=== PATIENT | female | born 1935 | race Caucasian/White ===

== ENCOUNTER → 2017-05-19 | Outpatient (CLI) | payer MEDICARE, OTHER ==
[~2017-05-19] MED LIST: CALC1TAB87 PO; EVOX30CA2 PO; FLUO.05%ST TOPICAL; GABA300C5 PO; IPRA0.06 EACH NARE; KETO2CRE TOPICAL; KRIL1000 PO; LEVO100T5 PO; NAPH1DRO EACH EYE; NEXI40CA PO; PROP20TA3 PO; SYST0.4D2 RIGHT EYE; SYSTSOL8 EACH EYE; ZOLP10TA3 PO; [UNRECOGNIZED DRUG - CODE] PO
[2017-05-19 08:36] LABS: AUTOMATED NEUTROPHIL # 3.6 TH/MM3 (1.8-7.7); BASOPHIL # 0.1 TH/MM3 (0-0.2); EOSINOPHIL # 0.3 TH/MM3 (0-0.4); EOSINOPHIL % 5.7 % (0.0-4.0); HEMATOCRIT 35.2 % (35.0-46.0); HEMO FLAGS DIFF FINAL; LYMPH % 16.1 % (9.0-44.0); LYMPHOCYTE # 0.9 TH/MM3 (1.0-4.8); MEAN CELL VOLUME 89.6 FL (80.0-100.0); MEAN CORPUSCULAR HEMOGLOBIN 30.5 PG (27.0-34.0); MONO % 11.2 % (0.0-8.0); PLATELET COUNT 194 TH/MM3 (150-450); RED BLOOD COUNT 3.93 MIL/MM3 (4.00-5.30); RED CELL DISTRIBUTION WIDTH 14.6 % (11.6-17.2); WHITE BLOOD COUNT 5.5 TH/MM3 (4.0-11.0)
[2017-05-19 08:41] LABS: APTT (PATIENT) 26.7 SEC (24.3-30.1); PROTHROMBIN TIME - PATIENT 10.5 SEC (9.8-11.6)
[2017-05-19 08:46] LABS: BLOOD, URINE NEG (NEG); COMMENT (UR) CATH-CULT NOT IND; CULTURE IF INDICATED CATH CULTURE NOT IND; GLUCOSE,URINE NEG (NEG); KETONE, URINE NEG (NEG); MUCUS URINE FEW /lpf (OCC); NITRITE,URINE NEG (NEG); URINE COLOR LIGHT-YELLOW (YELLW/STRAW)
[2017-05-19 09:03] LABS: BICARBONATE 25.4 MEQ/L (21.0-32.0); POTASSIUM 4.4 MEQ/L (3.5-5.1)
--- NOTE | 2017-05-20 09:31 | EKG ---
Date Performed: 05/19/2017 Time Performed: 08:27:08 PTAGE: 82 years EKG: Sinus bradycardia with borderline 1st degree A-V block. Borderline ECG PREVIOUS TRACING : 06/21/2005 13.37 DOCTOR: Angeline Ken Interpretating Date/Time 05/20/2017 09:30:58
== END ==
LOC: CPRE 07:54
PROVIDERS: ATTEND Orthopaedic Surgery
DX: Z01.812 Encounter for preprocedural laboratory examination (principal); Z01.810 Encounter for preprocedural cardiovascular examination; M17.11 Unilateral primary osteoarthritis, right knee; M79.609 Pain in unspecified limb; R94.31 Abnormal electrocardiogram [ECG] [EKG]
CPT/HCPCS: 36415; 80048; 81001; 85025; 85610; 85730; 93005

== ENCOUNTER 2017-06-12 05:15 | Inpatient (IN) | payer MEDICARE, OTHER ==
[~2017-06-12] VITALS: Ht 152.4 cm; Wt 50.2 kg
[2017-06-12] MEDS ORDERED: POVIDONE IODINE 5% (ANTISEPSIS KIT) 4 APPLICATIONS EACH NARE PRN (05:45)
[2017-06-12] MEDS ORDERED: ceFAZolin 2 GM PREMIX 50 ML IV SCH (05:45)
[2017-06-12] MEDS ORDERED: METOPROLOL TARTRATE 25 MG TAB PO PRN (05:45)
[2017-06-12] MEDS ORDERED: EXPAREL PERI-ARTICULAR INJECTION (TOTAL VOL. 100 ML) P-ARTICULR SCH ×2 (05:45)
[2017-06-12] MEDS ORDERED: CHLORHEXIDINE GLUCONATE 2 % 1 PACK (2 CLOTHS) TOPICAL PRN (05:45)
[2017-06-12] MEDS ORDERED: LACTATED RINGER'S 1000 ML IV PRN (05:45)
[2017-06-12] MEDS ORDERED: CHLORHEXIDINE GLUCONATE 4% SOLN 120 ML BTL TOPICAL SCH (05:45)
[2017-06-12] MEDS ORDERED: SODIUM CHLORID 0.9% 500 ML IV PRN (05:45)
[2017-06-12] MEDS ORDERED: TRANEXAMIC ACID INJ 500 MG in SODIUM CHLORIDE 0.9% INJ 100 ML IV SCH ×4 (05:45)
[2017-06-12] MEDS ORDERED: GENTAMICIN SULFATE 80 MG/2 ML VIAL ONE (05:54)
[2017-06-12] MEDS ORDERED: CLOB5AER (05:56)
[2017-06-12] MEDS ORDERED: ACETAMINOPHEN 1000 MG/100 ML 100 ML IV ONE (06:29)
[2017-06-12] MEDS ORDERED: MIDAZOLAM HCL 2 MG/2 ML VIAL ONE (06:30)
[2017-06-12] MEDS ORDERED: BUPIVACAINE LIPOSOME PF 1.3% 20 ML VIAL ONE (06:32)
[2017-06-12] MEDS ORDERED: FAMOTIDINE 20 MG/2 ML VIAL ONE (06:33)
[2017-06-12] MEDS ORDERED: ZOLPIDEM TARTRATE 5 MG TAB PO PRN (06:45)
[2017-06-12] MEDS ORDERED: ACETAMINOPHEN/HYDROcodone 325 MG/7.5 MG TAB PO PRN (06:45)
[2017-06-12] MEDS ORDERED: ONDANSETRON HCL 4 MG/2 ML VIAL IVP PRN (06:45)
[2017-06-12] MEDS ORDERED: TRANEXAMIC ACID INJ 0 MG in SODIUM CHLORIDE 0.9% INJ 100 ML IV SCH (06:45)
[2017-06-12] MEDS ORDERED: MAGNESIUM HYDROXIDE SUSP 30 ML CUP PO PRN (06:45)
[2017-06-12] MEDS ORDERED: ECASA81 PO (06:49)
--- NOTE | 2017-06-12 06:55 | HHI.FF ---
Face to Face Verification Diagnosis: (1) Status post total right knee replacement Physical Therapy Gait training Knee: Total knee, Protocol: Right, Gait training, Full weight bearing Right LE Weight Bearing: WB as tolerated Right LE Range of Motion: Active ROM (AROM, AAROM, PROM. ROM goal is 0 to 135 degrees.) Nursing Nursing: Dressing changes (to begin on postop day 7.) Dressing Changes: Daily dressing change, Coverderm/Primapore Additional Instructions Remove steristrips on postop day 14. I have seen patient Lisa Ronquillo on 06/12/17. My clinical findings support the need for the requested home health care services because: Ltd mobility - disease progression Limited ability to care for self High risk of falls I certify that my clinical findings support that this patient is homebound because: Post-op weakness Unsteady gait/balance Unsafe to leave home unassisted Vinnie Osorio MD ([place]) Jun 12, 2017 06:55
[2017-06-12] MEDS ORDERED: LACTASE PO PRN (07:00)
[2017-06-12] MEDS ORDERED: KETOCONAZOLE 2% CREAM 15 GM TOPICAL PRN (07:00)
[2017-06-12] MEDS ORDERED: POLYETHYLENE GLYCOL PROPYLENE OPTH RIGHT EYE PRN (07:00)
[2017-06-12] MEDS ORDERED: Post-op Orders (for Pharmacy) XX ONE (08:45)
[2017-06-12] MEDS ORDERED: [UNRECOGNIZED DRUG - OTHER] PO (09:00)
[2017-06-12] MEDS ORDERED: NAPHAZOLINE EACH EYE SCH (09:00)
[2017-06-12] MEDS ORDERED: MORPHINE SULFATE 2 MG/ML INJ IV PUSH PRN (09:00)
[2017-06-12] MEDS: LEVOTHYROXINE SODIUM 100 MCG TAB PO SCH (09:00)
[2017-06-12] MEDS: CALCIUM/VITAMIN D 250 MG/125 U TAB PO SCH (09:00)
[2017-06-12] MEDS ORDERED: GLYCERIN EACH EYE SCH (09:00)
[2017-06-12] MEDS ORDERED: FLUOCINONIDE TOPICAL SCH (09:00)
[2017-06-12] MEDS ORDERED: [UNRECOGNIZED DRUG - OTHER] EACH EYE SCH (09:00)
[2017-06-12] MEDS ORDERED: NON-FORMULARY DRUG (Krill Oil 1,000 MG) PO SCH (09:00)
[2017-06-12] MEDS ORDERED: IPRATROPIUM 0.06% NASAL SCH (09:00)
[2017-06-12] MEDS ORDERED: CEVIMELINE PO (09:00)
--- NOTE | 2017-06-12 09:10 | PD.OP ---
Operative Report Date of Surgery: Jun 12, 2017 Preoperative Diagnosis: (1) Primary osteoarthritis of right knee Postoperative Diagnosis: (1) Primary osteoarthritis of right knee Procedure: Right total knee arthroplasty with Laura Triathlon prosthesis (uncemented) Anesthesia: Spinal with adductor canal block regional and local Surgeon: Ajith Osorio M.D. Dinkey Dispatcher(s): Linda Koch Operation and Findings: Indications and Findings: This 82-year-old woman has had right knee pain for several years which is progressively worsening and progressively giving her more deformity. She has ambulation tolerance of 1 block. His difficulty with stairs and standing from a seated position. Treatment has included anti- inflammatory agents and analgesics, steroid injections, exercise, ambulatory aids. She has progressively worsened in spite of this. Physical findings show significant genu valgum with laxity in the lateral compartment, osteophytes, lateral tenderness crepitation on motion. X-rays show significant arthritis with loss of cartilage [id number], medial meniscal calcification, osteophytes and some lateral subchondral sclerosis. Operative findings were consistent with the radiographic findings with her being loss of articular cartilage to expose subchondral bone in the lateral compartment and also changes in the medial compartment and to a greater extent the patellofemoral compartment. Osteophytes and subchondral sclerosis. The prosthesis used was a Laura Triathlon prosthesis. The femur was a size 4, cruciate retaining, uncemented. The tibial baseplate was a size 3 Tritanium with a 9 mm cruciate retaining, X3 polyethylene spacer. The patella was a size 2 mm asymmetric Tritanium backed. The patient was brought to the clean-air operating suite. A spinal anesthetic was administered as well as a regional anesthetic by abductor canal block. The position was supine with a small bolster under the hip on the operative side. A pneumatic tourniquet was applied to the upper thigh. The lower extremity was then prepped with alcohol, Hibiclens and ChloraPrep and draped in the usual manner with the knee draped free. An appropriate timeout procedure was carried out. An incision was made from about 3 fingerbreadths above the superior medial pole of patella down the tibial tubercle on the medial side. The incision was deepened through the subcutaneous tissue to the retinacular structures which were exposed medially and laterally. A medial retinacular incision was then made from the superior middle pole of patella down the tibial tubercle and up into the quadriceps tendon splitting it longitudinally and the medial one third. The patella was reflected. The infrapatellar fat pad was debulked. The anterior cruciate ligament was excised. Medial and lateral meniscectomies were initiated. A fenestrations were made in the distal femur for intramedullary referencing guides. The distal femoral cutting guide and jig were then assembled for a 5, 8 mm cut. When this was fit position and placed cutting block was stabilized with pins. The jig was removed. The distal femoral cut was then completed with the oscillating saw. The sizing guide was then positioned in place along Whitesides line and the epicondylar axis and stabilized with pins. The femoral size was then determined as noted above. The 4-in-1 cutting block was then positioned in place. Anterior and posterior cuts were made followed by posterior and anterior chamfer cuts taking care to prevent injury to ligamentous structures. Osteophytes were then trimmed from the distal femur. A bone plug was then placed into the fenestration of the distal femur. The proximal tibia was then exposed. The medial and lateral meniscectomies were completed. The proximal tibial cutting guide was then positioned in place and stabilized for rotation. The depth of cut was then verified with a stylus off the lateral side. The cutting block was stabilized with pins. The jig was removed. The depth of cut was then verified and adjusted appropriately with the use of the spacer block. The proximal tibial cut was then made with the oscillating saw taking care to prevent injury to neurovascular and ligamentous structures. Proximal tibial bone was removed. Local anesthetic was administered with Exparel in the posterior capsule. The tibial baseplate trial was then positioned in place. After verifying the appropriate size, the base plate trial was positioned in place along with its spacer. The femoral component was then impacted into place. The alignment was checked. The tibial baseplate was then pinned in place on the tibia. Attention was directed to the patella. The patella drill guide was positioned in place for the appropriate sized patella. Patellar drilling was then carried out. The trial patella was positioned in place. The knee was taken through a range of motion which was easily 0 extension to 140. The patella trial was removed. The femoral drill holes were made. The femoral trials were removed. The tibial spacer was removed. The tibial punch was impacted through the proximal tibial punch guide. This was all removed followed by placement of the tibial drill guide. The tibial drill holes were then made. The guide was removed. The cut ends of bone were then cleaned with pulse lavage. The tibial baseplate was then impacted into place and seated appropriately. The spacer was inserted. The the femoral component was then impacted into place and seated appropriately. The patella component was then seated with the patellar device and tightened appropriately. The knee was taken through a range of motion which was comparable to the previous range of motion with excellent stability in flexion and extension and appropriate patellofemoral tracking. The remainder of the Exparel was then injected throughout the knee as a local anesthetic. Drains were brought out the superior lateral aspect of the suprapatellar pouch. Wound closure then commenced using 0 Vicryl interrupted [id number] sutures for the capsular and fascial structures, 2-0 Vicryl interrupted simple sutures with buried knots for the subcutaneous tissues and 4-0 Monocryl, tenuous subcuticular closure for the skin. The wound was then dressed with Steri-Strips followed by Optifoam silver impregnated dressing. Sterile soft roll with a cooling pad and Ori bandage from the base of the toes to mid thigh were then applied. Patient was then transferred from the operating room to the recovery room in satisfactory condition having tolerated procedure well. Counts are correct. Specimens: None. Estimated blood loss: 150 mL Vinnie Osorio MD ([place]) Jun 12, 2017 09:10
--- NOTE | 2017-06-12 09:12 | HHI.PR ---
Immediate Post Op Note Procedure Date: Jun 12, 2017 Pre Op Diagnosis: (1) Primary osteoarthritis of right knee Post Op Diagnosis: (1) Primary osteoarthritis of right knee Surgeon: Ajith Osorio M.D. Parachute Repairer(s): Linda Koch Procedure: Right total knee arthroplasty was Striker Triathlon prosthesis (uncemented) Findings: There was severe osteoarthritis in the right knee with loss of articular cartilage to bone on bone laterally. Complications: None Specimen(s) removed: None Estimated blood loss: 150 mL Anesthesia: Regional Block (adductor canal), Spinal, Local (bupivacaine liposomal) Drains: Hemovac (2) IVF Tourniquet time (min at mmHg) 0 Patient to: PACU Patient Condition: Good Implant/Devices: SEE IMPLANT LOG (if applicable) Date/Time of Procedure: SEE SURGICAL CARE RECORD Vinnie Osorio MD (Charles) Jun 12, 2017 09:12
[2017-06-12] MEDS ORDERED: HYDR-3580 PO (09:29)
[2017-06-12] MEDS: LACTATED RINGER'S 1000 ML INJ 1,000 ML IV SCH ×2 (09:42→21:30)
[2017-06-12] MEDS ORDERED: DO NOT ADM ANY ANTICOAGULANT DRUGS PRN (10:00)
--- NOTE | 2017-06-12 10:03 | RADRPT ---
EXAM DATE/TIME: 06/12/2017 09:44 [facility] COMPARISON: No previous studies available for comparison. INDICATIONS : Post op right total knee. MEDICAL HISTORY : None. SURGICAL HISTORY : None. ENCOUNTER: Initial ACUITY: 1 day PAIN SCORE: 0/10 LOCATION: Right Knee FINDINGS: Postsurgical features of right knee arthroplasty. Arthroplasty components are in anatomic alignment. No significant acute bony fracture. Immediate postsurgical soft tissue features. CONCLUSION: 1. Status post right knee arthroplasty in anatomic alignment without significant acute bony fracture. Fabian Chauhan MD on June 12, 2017 at 9:59 Board Certified Radiologist. This report was verified electronically.
[2017-06-12] MEDS ORDERED: ePHEDrine/NS 25 MG/5 ML SYRINGE IV ONE (12:00)
[2017-06-12] MEDS ORDERED: PROPOFOL 200 MG/20 ML AMP IV ONE (12:00)
[2017-06-12] MEDS ORDERED: DEXAMETHASONE SOD PHOS 4 MG/ML VIAL IV ONE (12:00)
[2017-06-12] MEDS ORDERED: ONDANSETRON HCL 4 MG/2 ML VIAL IV ONE (12:00)
[2017-06-12] MEDS ORDERED: LACTATED RINGER'S 1000 ML INJ 1,000 ML IV ONE (12:00)
[2017-06-12] MEDS ORDERED: SODIUM CHLORIDE 0.9% 20 ML VIAL IV ONE (12:00)
[2017-06-12] MEDS ORDERED: KETOROLAC TROMETHAMINE 30 MG/ML (IVP) VIAL IV PUSH ONE (12:00)
[2017-06-12] MEDS ORDERED: LIDOCAINE HCL 1% PF 5 ML SYRINGE OTHER ONE (12:00)
[2017-06-12] MEDS: ACETAMINOPHEN/HYDROcodone 325 MG/7.5 MG TAB PO PRN ×3 (12:48→23:38)
--- NOTE | 2017-06-12 15:18 | PD.CONS ---
[facility] By [facility] Osorio Reason for Consult Medical management Primary Care Physician Non-Staff Diagnoses: (1) Primary osteoarthritis of right knee (2) Hypothyroidism History of Present Illness 82-year-old female with a medical history significant for osteoarthritis, hypothyroidism, rheumatoid arthritis, GERD, atrial fibrillation and esophageal stricture admitted for right knee arthroplasty. Patient has had persistent issues with osteoarthritis involving the knee. She failed conservative management and was admitted for right knee arthroplasty. Patient is seen postoperatively. She reports her pain is under control. We reviewed her medical history. Regarding atrial fibrillation, she reports she has been stable on propranolol. She is not on any blood thinners and does not follow with a fur floor worker. 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 Appendectomy Maksim fundoplication Cataract surgery Status post right knee arthroplasty Reported Medications Reported Meds & Active Scripts Active Hydrocodone-Acetamin 7.5-325 (Hydrocodone/Acetaminophen) 7.5 Mg-325 Mg Tablet 1 Tab PO Q4H PRN Reported Clobetasol Propionate 0.05 % Foam Fluocinonide Topical (Fluocinonide) 0.05% Soln 1 Applic TOPICAL DAILY Ketoconazole Topical 2% Cream 1 Applic TOPICAL DAILY PRN Zolpidem (Zolpidem Tartrate) 10 Mg Tab 10 Mg PO HS PRN Evoxac (Cevimeline HCl) 30 Mg Cap 30 Mg PO TID PRN Ipratropium Nasal 0.06% Homer 1 Homer EACH NARE QID Nexium (Esomeprazole DR) 40 Mg Capdr 40 Mg PO DAILY Systane Gel Opth (Polyethylene Glycol-Propylene Opth) 0.4-0.3% Drops 1 Drop RIGHT EYE HS PRN Clear Eyes Cooling Comfort Opth Drops (Naphazoline-Glycerin Opth Drops) 0.5- 0.03 % Soln 1 Drop EACH EYE DAILY Systane Ultra Home & Away Opth (Polyethylene Glycol-Propylene Opth) 0.4-0.3% Soln 1 Drop EACH EYE BID Lactaid (Lactase) 3,000 Unit Tablet 1 Tab PO DAILY PRN Calcium 600 with Vitamin D (Calcium Carbonate-Cholecalciferol) 600-400 mg-Unit Tab 1 Tab PO DAILY Propranolol (Propranolol HCl) 20 Mg Tab 20 Mg PO DAILY Levothyroxine (Levothyroxine Sodium) 100 Mcg Tab 100 Mcg PO DAILY Krill Oil 1,000 Mg Cap 1,000 Mg PO DAILY Family History Reviewed and is noncontributory. Social History Patient does not use tobacco Admits to about a glass of wine daily. No history of alcohol withdrawals. Physical Exam Vital Signs Vital Signs Date Time Temp Pulse Resp B/P (MAP) Pulse Ox O2 Delivery O2 Flow Rate FiO2 06/12/17 14:00 97.5 50 16 152/65 (94) 98 Room Air 06/12/17 13:00 53 18 140/63 (88) 97 Room Air 06/12/17 12:03 97.5 06/12/17 12:00 97.5 54 15 155/68 (97) 96 Room Air 06/12/17 11:32 97.5 06/12/17 11:15 50 19 158/70 (99) 99 Room Air 06/12/17 11:00 52 19 142/62 (88) 99 Room Air 06/12/17 10:45 47 20 163/71 (101) 99 Room Air 06/12/17 10:30 49 20 168/71 (103) 100 Room Air 06/12/17 10:15 50 20 166/74 (104) 100 Room Air 06/12/17 10:06 96.6 06/12/17 10:00 47 13 165/73 (103) 98 Room Air 06/12/17 09:45 46 13 154/66 (95) 98 Room Air 06/12/17 09:30 45 13 156/69 (98) 98 Room Air 06/12/17 09:18 96.6 50 12 142/65 (90) 100 Room Air 06/12/17 05:59 97.8 54 16 199/69 (112) 100 Physical Exam GENERAL: This is a well-nourished, well-developed patient, in no apparent distress. SKIN: No rashes, ecchymoses or lesions. Cool and dry. HEAD: Atraumatic. Normocephalic. No temporal or scalp tenderness. EYES: Pupils equal round and reactive. Extraocular motions intact. No scleral icterus. No injection or drainage. ENT: Nose without bleeding, purulent drainage or septal hematoma. Throat without erythema, tonsillar hypertrophy or exudate. Uvula midline. Airway patent. NECK: Trachea midline. No JVD or lymphadenopathy. Supple, nontender, no meningeal signs. CARDIOVASCULAR: Regular rate and rhythm without murmurs, gallops, or rubs. RESPIRATORY: Clear to auscultation. Breath sounds equal bilaterally. No wheezes , rales, or rhonchi. GASTROINTESTINAL: Abdomen soft, non-tender, nondistended. No hepato-splenomegaly , or palpable masses. No guarding. MUSCULOSKELETAL: Right knee postop dressing intact. Neurovascularly intact distally at the foot. NEUROLOGICAL: Awake and alert. Cranial nerves II through XII intact. Motor and sensory grossly within normal limits. Five out of 5 muscle strength in all muscle groups. Normal speech. Imaging Last Impressions Knee X-Ray 06/12/17 0645 Signed Impressions: Service Date/Time: Monday, June 12, 2017 09:44 - CONCLUSION: 1. Status post right knee arthroplasty in anatomic alignment without significant acute bony fracture. Fabian Chauhan MD Assessment and Plan Problem List: (1) Primary osteoarthritis of right knee ICD Code: M17.11 - Unilateral primary osteoarthritis, right knee Plan: Status post right knee arthroplasty Routine postoperative care per orthopedics PT DVT prophylaxis when cleared by orthopedics Recommend we Avoid NSAIDs given the patient has only one functioning kidney (2) Paroxysmal atrial fibrillation ICD Code: I48.0 - Paroxysmal atrial fibrillation Plan: Patient has a CHADSVASC score of 3. Anticoagulation is recommended. I discussed this at length with the patient and her at bedside Would be reasonable for her to go out on DVT prophylaxis alone per orthopedics and follow-up with her primary care physician or cardiology to consider anticoagulation. (3) GERD (gastroesophageal reflux disease) ICD Code: K21.9 - Gastro-esophageal reflux disease without esophagitis Plan: Continue PPI (4) Hypothyroidism ICD Code: E03.9 - Hypothyroidism, unspecified Plan: Continue Synthroid Assessment and Plan Thank you for allowing me to participate in the care of Ms. Ronquillo. Will follow Mitra Saunders MD Jun 12, 2017 15:18
[2017-06-12 16:00] VITALS: BP 182/74; PULSE 71; RESP 18; TEMP 96.1; O2SAT 100
[2017-06-12] MEDS: KETOROLAC TROMETHAMINE 30 MG/ML (IVP) VIAL IVP SCH ×2 (16:15→21:34)
[2017-06-12 19:49] VITALS: BP 180/75; PULSE 83; RESP 18; TEMP 96.4; O2SAT 100
[2017-06-12 23:25] VITALS: BP 121/62; PULSE 60; RESP 18; TEMP 96.6; O2SAT 100
[2017-06-13] MEDS: KETOROLAC TROMETHAMINE 30 MG/ML (IVP) VIAL IVP SCH ×3 (03:20→13:32)
[2017-06-13 04:59] VITALS: BP 119/50; PULSE 64; RESP 18; TEMP 96.5; O2SAT 99
--- NOTE | 2017-06-13 06:16 | PD.ORT.PN ---
Subjective Post Op Day #: 1 Subjective Remarks She is doing well with very little pain at this time. She did get some confusion and was out of bed walking without assistance in the evening. She relates this possibly to medications. She has been taking Ambien along with the analgesic. She still still wants to go home. She has questions about activities and ADLs. Range of Motion 0 to 93 Distance Walked 175 feet with physical therapy. Objective Vitals Vital Signs Date Time Temp Pulse Resp B/P (MAP) Pulse Ox O2 Delivery O2 Flow Rate FiO2 06/13/17 04:46 21 06/13/17 04:32 17 06/13/17 00:52 17 06/12/17 23:25 96.6 60 18 121/62 (81) 100 06/12/17 19:49 96.4 83 18 180/75 (110) 100 06/12/17 16:00 96.1 71 18 182/74 (110) 100 06/12/17 14:00 97.5 50 16 152/65 (94) 98 Room Air 06/12/17 13:00 53 18 140/63 (88) 97 Room Air 06/12/17 12:03 97.5 06/12/17 12:00 97.5 54 15 155/68 (97) 96 Room Air 06/12/17 11:32 97.5 06/12/17 11:15 50 19 158/70 (99) 99 Room Air 06/12/17 11:00 52 19 142/62 (88) 99 Room Air 06/12/17 10:45 47 20 163/71 (101) 99 Room Air 06/12/17 10:30 49 20 168/71 (103) 100 Room Air 06/12/17 10:15 50 20 166/74 (104) 100 Room Air 06/12/17 10:06 96.6 06/12/17 10:00 47 13 165/73 (103) 98 Room Air 06/12/17 09:45 46 13 154/66 (95) 98 Room Air 06/12/17 09:30 45 13 156/69 (98) 98 Room Air 06/12/17 09:18 96.6 50 12 142/65 (90) 100 Room Air I/O 06/12/17 06/12/17 06/12/17 06/13/17 06/13/17 06/13/17 07:00 15:00 23:00 07:00 15:00 23:00 Intake Total 1510 ml 480 ml 360 ml Output Total 650 ml 265 ml Balance 860 ml 215 ml 360 ml Intake Oral 210 ml 480 ml 360 ml IV Total 1300 ml Output Urine Total 500 ml Drainage Total 50 ml 265 ml Estimated Blood Loss 100 ml # Voids 2 2 # Bowel Movements 0 0 Imaging Last 24 hours Impressions Knee X-Ray 06/12/17 0645 Signed Impressions: Service Date/Time: Monday, June 12, 2017 09:44 - CONCLUSION: 1. Status post right knee arthroplasty in anatomic alignment without significant acute bony fracture. Fabian Chauhan MD Objective Remarks She is resting comfortably, out of bed in the chair within the elevated. The dressing is dry and intact. The neurovascular status is intact. Assessment & Plan Ortho Post Op Day #: 1 Problem List: (1) Status post total right knee replacement ICD Codes: Z96.651 - Presence of right artificial knee joint Plan: Continue postoperative care and PT. (2) Primary osteoarthritis of right knee ICD Codes: M17.11 - Unilateral primary osteoarthritis, right knee Status: Resolved Assessment and Plan Condition: Good. Orthopedically stable. DVT prophylaxis: TEDs, aspirin, sequentials. Discharge plans: Home with home health care. An appointment was scheduled through the office. Prescriptions: [place] 7.5/325 I have discussed with her and her the use of Ambien. She should probably discontinue the Ambien at this time as long as she is taking [place]. I have suggested that she take one half of [place] rather than a full dose. We also discussed precautions related to bathing, wound care and other ADL. Vinnie Osorio MD ([place]) Jun 13, 2017 06:16
[2017-06-13 06:27] LABS: HEMATOCRIT 29.7 % (35.0-46.0); HEMOGLOBIN 9.9 GM/DL (11.6-15.3)
[2017-06-13] MEDS: LEVOTHYROXINE SODIUM 100 MCG TAB PO SCH (06:48)
--- NOTE | 2017-06-13 07:01 | HHI.DS ---
Discharge Summary Admission Date Jun 12, 2017 at 05:15 Discharge Date: Jun 13, 2017 Admitting Diagnosis Primary osteoarthritis, right knee Diagnosis: (1) Status post total right knee replacement ICD Codes: Z96.651 - Presence of right artificial knee joint (2) Primary osteoarthritis of right knee Diagnosis: Principal ICD Codes: M17.11 - Unilateral primary osteoarthritis, right knee Status: Resolved Procedures Right total knee arthroplasty with Laura Triathlon prosthesis (uncemented) on 06/12/2017 he Brief History This is a 82 year old female patient was admitted for osteoarthritis of the right knee which has been nonresponsive to conservative measures including anti- inflammatory agents and analgesics and exercise. She has had progressive deformity in the knee. She has limited ambulation tolerance. Physical findings show genu valgum on the right with lateral laxity and significant tenderness. X-ray showed loss of articular cartilage to bone on bone lateral compartment with osteophytes and eburnation. CBC/BMP: 06/13/17 0603 Significant Findings Laboratory Tests Test 06/13/17 06:03 Hemoglobin 9.9 GM/DL (11.6-15.3) Hematocrit 29.7 % (35.0-46.0) Imaging Last 72 hours Impressions Knee X-Ray 06/12/17 0645 Signed Impressions: Service Date/Time: Monday, June 12, 2017 09:44 - CONCLUSION: 1. Status post right knee arthroplasty in anatomic alignment without significant acute bony fracture. Fabian Chauhan MD PE at Discharge She is resting comfortably, out of bed in the chair within the elevated. The dressing is dry and intact. The neurovascular status is intact. Hospital Course The patient was admitted as noted above. She had the above noted operative procedure carried out as noted above. She received prophylactic antibiotics in the form of Ancef according to protocol both preoperatively and postoperatively. She received tranexamic acid to help with hemostasis according to the protocol. DVT prophylaxis was initiated with PRAKASH stockings and sequentials and will follow with aspirin. This will be continued as an outpatient She was started on physical therapy the day of surgery. She progressed well according to the physical therapy notes. She was able to walk 175 feet and had a range of motion from 0 extension to 93 of flexion. She was discharged home with home health care. I have discussed her findings and postoperative plans and care with her and her at the bedside. Pt Condition on Discharge: Good Discharge Disposition: Disch w/ Home Health Serv Discharge Instructions Diet Instructions: As Tolerated, No Restrictions Activities You Can Perform: Full Weight Bearing, Shower Only-No Bath Activities to Avoid: Lifting/Bending, Strenuous Activity, Bathing, Driving Follow up Referrals: Orthopedics with Vinnie Osorio MD (Charles) New Medications: Aspirin DR (Aspirin DR) 81 Mg Tabdr 81 MG PO BID for Prevent Blood Clot for 30 Days, #60 TAB Hydrocodone/Acetaminophen (Hydrocodone-Acetamin 7.5-325) 7.5 Mg-325 Mg Tablet 1 TAB PO Q4H PRN for PAIN SCALE 1 TO 10, #30 TAB Continued Medications: Calcium Carbonate-Cholecalciferol (Calcium 600 with Vitamin D) 600-400 mg-Unit Tab 1 TAB PO DAILY for Calcium Supplement, TAB 0 Refills Cevimeline (Evoxac) 30 Mg Cap 30 MG PO TID PRN for DRY MOUTH, #90 CAP 0 Refills Clobetasol Propionate (Clobetasol Propionate) 0.05 % Foam Esomeprazole DR (Nexium) 40 Mg Capdr 40 MG PO DAILY, CAP 0 Refills Fluocinonide Topical (Fluocinonide Topical) 0.05% Soln 1 APPLIC TOPICAL DAILY, #60 ML 0 Refills Ipratropium Nasal (Ipratropium Nasal) 0.06% Josephine 1 SPRAY EACH NARE QID, #1 BOTTLE 0 Refills Ketoconazole Topical (Ketoconazole Topical) 2% Cream 1 APPLIC TOPICAL DAILY PRN for RASH, #15 GM 0 Refills Krill Oil (Krill Oil) 1,000 Mg Cap 1000 MG PO DAILY, CAP Lactase (Lactaid) 3,000 Unit Tablet 1 TAB PO DAILY PRN for PRN Levothyroxine (Levothyroxine) 100 Mcg Tab 100 MCG PO DAILY for Thyroid, #30 TAB 0 Refills Naphazoline-Glycerin Opth Drops (Clear Eyes Cooling Comfort Opth Drops) 0.5- 0.03 % Soln 1 DROP EACH EYE DAILY for Decrease eye redness, #1 BOTTLE 0 Refills Polyethylene Glycol-Propylene Opth (Systane Ultra Home & Away Opth) 0.4-0.3% Soln 1 DROP EACH EYE BID Polyethylene Glycol-Propylene Opth (Systane Gel Opth) 0.4-0.3% Drops 1 DROP RIGHT EYE HS PRN for PRN Propranolol (Propranolol) 20 Mg Tab 20 MG PO DAILY, #60 TAB 0 Refills Zolpidem (Zolpidem) 10 Mg Tab 10 MG PO HS PRN for INSOMNIA, TAB 0 Refills Vinnie Osorio MD (Charles) Jun 13, 2017 07:00
[2017-06-13 07:35] VITALS: BP 157/65; PULSE 56; RESP 17; TEMP 95; O2SAT 97
[2017-06-13] MEDS ORDERED: ASPIRIN EC 81 MG TABEC PO SCH (08:00)
[2017-06-13] MEDS: CALCIUM/VITAMIN D 250 MG/125 U TAB PO SCH (08:52)
[2017-06-13] MEDS: LACTATED RINGER'S 1000 ML INJ 1,000 ML IV SCH (08:52)
[2017-06-13] MEDS ORDERED: PANTOPRAZOLE SOD 40 MG DELAYED RELEASE TAB PO SCH (09:00)
[2017-06-13] MEDS ORDERED: PROPRANOLOL HCL 20 MG TAB PO SCH (09:00)
[2017-06-13 10:22] VITALS: O2SAT 97
[2017-06-13 11:57] VITALS: BP 163/63; PULSE 57; RESP 17; TEMP 95.7; O2SAT 96
[2017-06-13] MEDS: ACETAMINOPHEN/HYDROcodone 325 MG/7.5 MG TAB PO PRN (13:36)
[2017-06-13] MEDS ORDERED: DOCUSATE SODIUM 100 MG CAP PO SCH (21:00)
== END 2017-06-13 13:57 | disposition home health service (06) | DRG 470 ==
LOC: HSDI 05:15 → N06A 14:32
PROVIDERS: ADMIT Orthopaedic Surgery; ATTEND Orthopaedic Surgery
PROC: 3E0T3BZ Introduction of Anesthetic Agent into Peripheral Nerves and Plexi, Percutaneous Approach (ICD-10-PCS; 2017-06-12)
PROC: 0SRC0JA Replacement of Right Knee Joint with Synthetic Substitute, Uncemented, Open Approach (ICD-10-PCS; principal; 2017-06-12 06:38)
DX: M17.11 Unilateral primary osteoarthritis, right knee (principal); M06.9 Rheumatoid arthritis, unspecified; I48.0 Paroxysmal atrial fibrillation; M21.061 Valgus deformity, not elsewhere classified, right knee; E03.9 Hypothyroidism, unspecified; K21.9 Gastro-esophageal reflux disease without esophagitis; Z87.891 Personal history of nicotine dependence
CPT/HCPCS: 73560; 85014; 85018; 86850; 86900; 86901; C1776; C9290; J0131; J0690; J1100; J1580; J1885; J2250; J2405; J3010; J7120